=== PATIENT | male | born 1990 | race Two or more races ===

== ENCOUNTER 2019-11-18 12:59 | Emergency (ER) | payer OTHER ==
[~2019-11-18] VITALS: Ht 177.8 cm; Wt 99.8 kg
[2019-11-18] MEDS ORDERED: AMOX1TAB5 PO (15:52)
== END 2019-11-18 16:08 | disposition home or self-care (01) ==
LOC: ER 12:59
DX: H10.13 Acute atopic conjunctivitis, bilateral (principal); J06.9 Acute upper respiratory infection, unspecified